=== PATIENT | male | born 1975 | race Caucasian/White ===

== ENCOUNTER 2020-12-21 10:38 | Emergency (ER) | payer MEDICARE, OTHER ==
[~2020-12-21 10:38] MED LIST: BENADRYL 50MG C50 MG PO; PEPCID40 MG PO; PREDNISONE 50 M50 MG PO
[2020-12-21] MEDS ORDERED: AUGMENTIN 875-1 EACH PO (16:07)
[2020-12-21] MEDS ORDERED: NAPROSYN500 MG PO (16:07)
== END 2020-12-21 16:50 | disposition home or self-care (01) ==
LOC: ER1 10:38
DX: S61.311A Laceration without foreign body of left index finger with damage to nail, initial encounter (principal); E11.9 Type 2 diabetes mellitus without complications; W26.8XXA Contact with other sharp object(s), not elsewhere classified, initial encounter; Y92.009 Unspecified place in unspecified non-institutional (private) residence as the place of occurrence of the external cause
CPT/HCPCS: 11760; 12001; 73140; 90715; 99283

== ENCOUNTER 2021-10-22 03:17 | Emergency (ER) | payer MEDICARE, OTHER ==
[~2021-10-22 03:17] MED LIST changes: +AUGMENTIN 875-1 EACH PO; +NAPROSYN500 MG PO
[2021-10-22] MEDS ORDERED: EPIPEN 2-P0.3 MG/0.3 INJ (04:44)
[2021-10-22] MEDS ORDERED: PREDNISONE 20 M20 MG PO (04:44)
[2021-10-22] MEDS ORDERED: PEPCID20 MG PO (04:44)
== END 2021-10-22 04:55 | disposition home or self-care (01) ==
LOC: ER1 03:17
DX: L50.0 Allergic urticaria (principal)
CPT/HCPCS: 96374; 96375; 99282; J1200; J2930